=== PATIENT | female | born 1935 | race Caucasian/White ===

== ENCOUNTER → 2017-07-27 | Outpatient (CLI) | payer OTHER ==
[~2017-07-27] MED LIST: GLUC-121 PO; LEVO50TA5 PO; LISI1TAB5 PO; METF500T9 PO; MULTIVITAMINS PO; SENN1TAB67 PO; SIMV40TA3 PO; SOLI10TA2 PO; [UNRECOGNIZED DRUG - OTHER] PO
== END | disposition home or self-care (01) ==
LOC: CFH 09:11
PROVIDERS: ATTEND Family Medicine
DX: M51.36 Other intervertebral disc degeneration, lumbar region (principal); M41.86 Other forms of scoliosis, lumbar region; M48.061 Spinal stenosis, lumbar region without neurogenic claudication; M41.84 Other forms of scoliosis, thoracic region
CPT/HCPCS: 72072; 72100

== ENCOUNTER 2018-01-11 10:18 | Inpatient (IN) | payer OTHER ==
[~2018-01-11] VITALS: Ht 162.6 cm; Wt 86.1 kg
[~2018-01-11 10:18] MED LIST changes: +AZIT500T5 PO; +CEPH-368 PO; +HYDR25TA6 PO; +LISI1TAB7 PO; +LOSA25TA5 PO; +SIMV20TA3 PO; +UNKNOWN CHOLESTEROL
[2018-01-11] MEDS ORDERED: SODIUM CHLORIDE 0.9% 1,000ML IVBOLUS ONE ×2 (11:30→12:30)
[2018-01-11 11:57] LABS: ALANINE AMINOTRANSFERASE 27 U/L (12-78); ALBUMIN 3.7 g/dL (3.4-5.0); ANION GAP 10 mmol/L (5-15); CALCIUM 8.1 mg/dL (8.5-10.1); CHLORIDE 88 mmol/L (98-107)
[2018-01-11 12:00] LABS: ALKALINE PHOSPHATASE 52 U/L (45-117); BILIRUBIN,TOTAL 0.8 mg/dL (0.2-1.0); CREATININE 0.97 mg/dL (0.55-1.02); TOTAL PROTEIN 6.8 g/dL (6.4-8.2)
[2018-01-11 12:11] LABS: BASOPHILS # (AUTO) 0.02 x10^3/uL (0-0.1); BASOPHILS % (AUTO) 0 % (0-1); EOSINOPHILS # (AUTO) 0.06 x10^3/uL (0-0.4); EOSINOPHILS % (AUTO) 1 % (1-7); LYMPHOCYTES # (AUTO) 1.27 x10^3/uL (1-3.4); LYMPHOCYTES % (AUTO) 18 % (22-44); MD NO; MEAN CORPUSCULAR HEMOGLOBIN 32.1 pg (27.0-34.8); MEAN CORPUSCULAR HGB CONC 33.9 g/dL (32.4-35.8); MEAN CORPUSCULAR VOLUME 94.6 fL (80-100); MEAN PLATELET VOLUME 9.8 fL (7.4-10.4); MONOCYTES # (AUTO) 0.55 x10^3/uL (0.2-0.8); MONOCYTES % (AUTO) 8 % (2-9); NEUTROPHILS # (AUTO) 5.24 x10^3/uL (1.8-6.8); NEUTROPHILS % (AUTO) 73 % (42-75); PLATELET COUNT 229 x10^3/uL (130-400); RED BLOOD COUNT 3.92 x10^6/uL (3.82-5.3); RED CELL DISTRIBUTION WIDTH 12.6 % (9.6-15.2)
[2018-01-11] MEDS ORDERED: SODIUM CHLORIDE 0.9% 1,000 ML IV SCH (12:30)
[2018-01-11 13:33] VITALS: BP 149/82
[2018-01-11] MEDS ORDERED: hydrALAzine 20 MG/ML, 1ML IVPush PRN (14:00)
[2018-01-11] MEDS ORDERED: ACETAMINOPHEN 325 MG TABLET PO PRN (14:00)
[2018-01-11] MEDS ORDERED: ONDANSETRON 2MG/ML, 2ML IVPush PRN (14:00)
[2018-01-11] MEDS ORDERED: morphine SULFATE 10 MG/ML, 1ML IVPush PRN (14:00)
[2018-01-11] MEDS ORDERED: HYDROcodone/APAP 5/325 TABLET PO PRN (14:00)
[2018-01-11 15:15] LABS: FREE T4 (FREE THYROXINE) 1.25 ng/dL (0.76-1.46); THYROID STIMULATING HORMONE 1.55 mIU/L (0.358-3.740)
[2018-01-11 15:28] VITALS: BP 149/82
[2018-01-11] MEDS: SODIUM CHLORIDE 0.9% 1,000 ML IV SCH ×2 (15:40→21:04)
[2018-01-11] MEDS: ENOXAPARIN 40 MG/0.4 ML SQ SCH (15:41)
[2018-01-11] MEDS ORDERED: ONDANSETRON ODT 4 MG ONE (16:04)
[2018-01-11 19:33] VITALS: BP 116/74
[2018-01-11] MEDS: PANTOPRAZOLE 40 MG IV IVPush SCH (20:13)
[2018-01-11] MEDS ORDERED: SIMVASTATIN 20 MG TABLET PO SCH (21:00)
[2018-01-11] MEDS: TEMAZEPAM 15 MG CAPSULE PO PRN (21:04)
[2018-01-12 01:35] VITALS: BP 104/66
[2018-01-12] MEDS: SODIUM CHLORIDE 0.9% 1,000 ML IV SCH ×3 (04:51→22:33)
[2018-01-12 05:02] LABS: BASOPHILS # (AUTO) 0.04 x10^3/uL (0-0.1); BASOPHILS % (AUTO) 1 % (0-1); EOSINOPHILS # (AUTO) 0.22 x10^3/uL (0-0.4); EOSINOPHILS % (AUTO) 4 % (1-7); LYMPHOCYTES # (AUTO) 1.96 x10^3/uL (1-3.4); LYMPHOCYTES % (AUTO) 33 % (22-44); MD NO; MEAN CORPUSCULAR HGB CONC 33.8 g/dL (32.4-35.8); MEAN CORPUSCULAR VOLUME 94.8 fL (80-100); MEAN PLATELET VOLUME 9.4 fL (7.4-10.4); MONOCYTES # (AUTO) 0.59 x10^3/uL (0.2-0.8); MONOCYTES % (AUTO) 10 % (2-9); NEUTROPHILS # (AUTO) 3.12 x10^3/uL (1.8-6.8); NEUTROPHILS % (AUTO) 53 % (42-75); PLATELET COUNT 199 x10^3/uL (130-400); RED BLOOD COUNT 3.52 x10^6/uL (3.82-5.3); RED CELL DISTRIBUTION WIDTH 12.8 % (9.6-15.2)
[2018-01-12 05:03] LABS: ANION GAP 4 mmol/L (5-15); CALCIUM 7.7 mg/dL (8.5-10.1); CHLORIDE 98 mmol/L (98-107)
[2018-01-12 05:09] LABS: ALANINE AMINOTRANSFERASE 22 U/L (12-78); ALKALINE PHOSPHATASE 41 U/L (45-117); BILIRUBIN,TOTAL 0.7 mg/dL (0.2-1.0); CREATININE 0.87 mg/dL (0.55-1.02); TOTAL PROTEIN 5.7 g/dL (6.4-8.2)
[2018-01-12 07:53] VITALS: BP 132/80
[2018-01-12] MEDS ORDERED: TEMPLATE NON-FORMULARY MED. (Glucosamine/Msm/Chondroitin A** (Glucosamine Chondroit Msm Ta PO SCH (09:00)
[2018-01-12] MEDS ORDERED: TEMPLATE NON-FORMULARY MED. (Lisinopril/Hydrochlorothiazide** (Lisinopril-Hctz 20-25 Mg Ta PO SCH (09:00)
[2018-01-12] MEDS ORDERED: HYDROCHLOROTHIAZIDE 25 MG TABLET PO SCH (09:00)
[2018-01-12 09:14] LABS: CLOSTRIDIUM DIFFICILE ANTIGEN NEGATIVE; CLOSTRIDIUM DIFFICILE TOXIN NEGATIVE (Negative)
[2018-01-12] MEDS: PANTOPRAZOLE 40 MG IV IVPush SCH ×2 (10:20→19:45)
[2018-01-12] MEDS: LEVOTHYROXINE 50 MCG TABLET PO SCH (10:21)
[2018-01-12] MEDS: LOSARTAN 25MG TABLET PO SCH (10:21)
[2018-01-12] MEDS: SIMVASTATIN 20 MG TABLET PO SCH (10:22)
[2018-01-12] MEDS: LISINOPRIL 20 MG TABLET PO SCH (10:22)
[2018-01-12 13:24] VITALS: BP 125/78
[2018-01-12] MEDS: ENOXAPARIN 40 MG/0.4 ML SQ SCH (15:18)
[2018-01-12] MEDS: TEMAZEPAM 15 MG CAPSULE PO PRN (19:45)
[2018-01-12 20:38] VITALS: BP 119/76
[2018-01-13 02:42] VITALS: BP 90/55
[2018-01-13 04:50] LABS: ANION GAP 5 mmol/L (5-15); CALCIUM 8.1 mg/dL (8.5-10.1); CHLORIDE 104 mmol/L (98-107)
[2018-01-13 04:55] LABS: ALANINE AMINOTRANSFERASE 24 U/L (12-78); ALKALINE PHOSPHATASE 40 U/L (45-117); BILIRUBIN,TOTAL 0.6 mg/dL (0.2-1.0); CREATININE 0.77 mg/dL (0.55-1.02); TOTAL PROTEIN 5.6 g/dL (6.4-8.2)
[2018-01-13] MEDS: SODIUM CHLORIDE 0.9% 1,000 ML IV SCH (05:57)
[2018-01-13 07:15] VITALS: BP 124/82
[2018-01-13] MEDS: LEVOTHYROXINE 50 MCG TABLET PO SCH (07:34)
[2018-01-13] MEDS: LOSARTAN 25MG TABLET PO SCH (07:35)
[2018-01-13] MEDS: SIMVASTATIN 20 MG TABLET PO SCH (07:35)
[2018-01-13] MEDS: LISINOPRIL 20 MG TABLET PO SCH (07:35)
[2018-01-13] MEDS: PANTOPRAZOLE 40 MG IV IVPush SCH (07:35)
== END 2018-01-13 12:00 | disposition home or self-care (01) | DRG 641 ==
LOC: ED 11:27 → EDIP 12:31 → 3NW 13:16
PROVIDERS: ADMIT Internal Medicine; ATTEND Internal Medicine
DX: E87.1 Hypo-osmolality and hyponatremia (principal); E03.9 Hypothyroidism, unspecified; E78.5 Hyperlipidemia, unspecified; F32.9 Major depressive disorder, single episode, unspecified; I10 Essential (primary) hypertension; T43.205A Adverse effect of unspecified antidepressants, initial encounter; Z90.710 Acquired absence of both cervix and uterus; Y92.89 Other specified places as the place of occurrence of the external cause
CPT/HCPCS: 36415; 80053; 83735; 84100; 84439; 84443; 85025; 87324; 89055; 93005; 99285; J1650; J2405; C9113; J7030

== ENCOUNTER 2018-07-15 09:45 | Emergency (ER) | payer OTHER ==
[~2018-07-15] VITALS: Ht 162.6 cm; Wt 78.3 kg
[~2018-07-15 09:45] MED LIST changes: -LOSA25TA5 PO; +LOSA25TA6 PO
[2018-07-15 10:05] VITALS: BP 178/99
== END 2018-07-15 11:37 | disposition home or self-care (01) ==
LOC: ED 11:31
DX: M25.561 Pain in right knee (principal); E78.5 Hyperlipidemia, unspecified; I10 Essential (primary) hypertension
CPT/HCPCS: 99283

== ENCOUNTER → 2018-12-25 | Outpatient (CLI) | payer MEDICARE ==
[~2018-12-25] MED LIST changes: +LOSA25TA25 PO; -LOSA25TA6 PO
== END | disposition home or self-care (01) ==
LOC: CVU 10:40
PROVIDERS: ATTEND Internal Medicine Cardiovascular Disease
DX: I07.1 Rheumatic tricuspid insufficiency (principal); R94.31 Abnormal electrocardiogram [ECG] [EKG]
CPT/HCPCS: 93306